=== PATIENT | female | born 1990 | race Caucasian/White ===

== ENCOUNTER → 2024-07-20 10:42 | Outpatient (REF) | payer BC, SELFPAY | LOC: PNTC 10:42 | PROVIDERS: ATTENDING PHYSICIAN Obstetrics & Gynecology | DX: O99.210 Obesity complicating pregnancy, unspecified trimester (principal); O09.811 Supervision of pregnancy resulting from assisted reproductive technology, first trimester; O99.119 Other diseases of the blood and blood-forming organs and certain disorders involving the immune mechanism complicating pregnancy, unspecified trimester; O09.529 Supervision of elderly multigravida, unspecified trimester | CPT/HCPCS: 76801; 76813 ==

== ENCOUNTER → 2024-08-17 14:19 | Outpatient (REF) | payer BC, SELFPAY | LOC: PNTC 14:19 | PROVIDERS: ATTENDING PHYSICIAN Obstetrics & Gynecology | DX: O99.210 Obesity complicating pregnancy, unspecified trimester (principal); O09.819 Supervision of pregnancy resulting from assisted reproductive technology, unspecified trimester; O09.519 Supervision of elderly primigravida, unspecified trimester; O99.891 Other specified diseases and conditions complicating pregnancy | CPT/HCPCS: 76805 ==

== ENCOUNTER → 2024-09-14 14:49 | Outpatient (REF) | payer BC, SELFPAY | LOC: PNTC 14:49 | PROVIDERS: ATTENDING PHYSICIAN Obstetrics & Gynecology | DX: O99.210 Obesity complicating pregnancy, unspecified trimester (principal); O09.529 Supervision of elderly multigravida, unspecified trimester; O09.819 Supervision of pregnancy resulting from assisted reproductive technology, unspecified trimester; O99.119 Other diseases of the blood and blood-forming organs and certain disorders involving the immune mechanism complicating pregnancy, unspecified trimester | CPT/HCPCS: 76811; 76817 ==

== ENCOUNTER → 2024-10-12 13:45 | Outpatient (REF) | payer BC, SELFPAY | LOC: PNTC 13:45 | PROVIDERS: ATTENDING PHYSICIAN Obstetrics & Gynecology | DX: O99.210 Obesity complicating pregnancy, unspecified trimester (principal); O09.819 Supervision of pregnancy resulting from assisted reproductive technology, unspecified trimester; M06.9 Rheumatoid arthritis, unspecified; O44.40 Low lying placenta NOS or without hemorrhage, unspecified trimester | CPT/HCPCS: 76816; 76817 ==

== ENCOUNTER → 2024-11-09 13:56 | Outpatient (REF) | payer BC, SELFPAY | LOC: PNTC 13:56 | PROVIDERS: ATTENDING PHYSICIAN Obstetrics & Gynecology | DX: O99.210 Obesity complicating pregnancy, unspecified trimester (principal); O09.819 Supervision of pregnancy resulting from assisted reproductive technology, unspecified trimester; O99.519 Diseases of the respiratory system complicating pregnancy, unspecified trimester | CPT/HCPCS: 76816 ==

== ENCOUNTER → 2024-12-07 13:53 | Outpatient (REF) | payer BC, SELFPAY | LOC: PNTC 13:53 | PROVIDERS: ATTENDING PHYSICIAN Obstetrics & Gynecology | DX: O99.210 Obesity complicating pregnancy, unspecified trimester (principal); O09.819 Supervision of pregnancy resulting from assisted reproductive technology, unspecified trimester; M05.9 Rheumatoid arthritis with rheumatoid factor, unspecified | CPT/HCPCS: 76816 ==

== ENCOUNTER → 2025-01-04 13:54 | Outpatient (REF) | payer BC, SELFPAY | LOC: PNTC 13:54 | PROVIDERS: ATTENDING PHYSICIAN Obstetrics & Gynecology | DX: O99.210 Obesity complicating pregnancy, unspecified trimester (principal); M06.00 Rheumatoid arthritis without rheumatoid factor, unspecified site; O09.819 Supervision of pregnancy resulting from assisted reproductive technology, unspecified trimester | CPT/HCPCS: 59025; 76816 ==

== ENCOUNTER → 2025-01-11 13:50 | Outpatient (REF) | payer BC, SELFPAY | LOC: PNTC 13:50 | PROVIDERS: ATTENDING PHYSICIAN Obstetrics & Gynecology | DX: O09.529 Supervision of elderly multigravida, unspecified trimester (principal); M05.60 Rheumatoid arthritis of unspecified site with involvement of other organs and systems; Z31.83 Encounter for assisted reproductive fertility procedure cycle; O99.210 Obesity complicating pregnancy, unspecified trimester | CPT/HCPCS: 59025; 76815 ==

== ENCOUNTER → 2025-01-18 09:53 | Outpatient (REF) | payer BC, SELFPAY | LOC: PNTC 09:53 | PROVIDERS: ATTENDING PHYSICIAN Obstetrics & Gynecology | DX: O99.210 Obesity complicating pregnancy, unspecified trimester (principal); M06.9 Rheumatoid arthritis, unspecified; O09.819 Supervision of pregnancy resulting from assisted reproductive technology, unspecified trimester | CPT/HCPCS: 59025; 76816 ==

== ENCOUNTER 2025-01-23 00:26 | Inpatient (IN) | payer BC, SELFPAY ==
[2025-01-23 00:34] VITALS: BMI 36.9
[2025-01-23] MEDS: LR 1000 IV ×2 (00:55→01:59)
[2025-01-23 00:56] VITALS: BP 119/79
[2025-01-23] MEDS: PENICILLIN 110 UNITS IV (01:06)
[2025-01-23 01:12] LABS: Hematocrit 35.9 % (37.0-47.0); Hemoglobin 12.2 g/dL (12.0-16.0); Mean Corp Hgb Conc. 34.0 g/dL (33.0-37.0); Mean Corpuscular Volume 83.3 fL (81.0-99.0); Platelet Count 162 10^3/uL (130-400); Red Cell Dist. Width 15.7 % (11.5-14.5)
[2025-01-23] MEDS: SUBLIMAZE 100 MCG EPIDURAL (01:34)
[2025-01-23] MEDS: FENTANYL/BUPIVACAINE 100 EPIDURAL (01:34)
[2025-01-23 01:45] LABS: Nucleated Red Blood Cells % 0 %
[2025-01-23] MEDS: PENICILLIN 55 UNITS IV (05:08)
[2025-01-23] MEDS: FOLVITE 2 MG PO (08:17)
[2025-01-23] MEDS: COLACE 100 MG PO ×2 (08:17→20:25)
[2025-01-23] MEDS: PRENATAL PLUS 1 TABLET PO (08:17)
[2025-01-23] MEDS: MOTRIN 600 MG PO ×2 (08:18→16:35)
[2025-01-24] MEDS: TYLENOL 650 MG PO (01:13)
[2025-01-24] MEDS: MOTRIN 600 MG PO ×3 (01:14→19:50)
[2025-01-24 04:32] LABS: Hematocrit 32.3 % (37.0-47.0); Hemoglobin 10.8 g/dL (12.0-16.0)
[2025-01-24] MEDS: PRENATAL PLUS 1 TABLET PO (08:57)
[2025-01-24] MEDS: COLACE 100 MG PO ×2 (09:00→19:50)
[2025-01-24] MEDS: FOLVITE 2 MG PO (09:06)
[2025-01-25] MEDS: COLACE 100 MG PO (08:25)
[2025-01-25] MEDS: FOLVITE 2 MG PO (08:25)
[2025-01-25] MEDS: TYLENOL 650 MG PO (08:26)
[2025-01-25] MEDS: PRENATAL PLUS 1 TABLET PO (08:26)
[2025-01-26 17:15] LABS: Syphilis/T. pallidum Ab Reflex Negative (Negative)
== END 2025-01-25 11:07 | disposition home or self-care (01) | DRG 807 ==
LOC: LDRP 00:26
PROVIDERS: Obstetrics & Gynecology; ADMITTING PHYSICIAN Obstetrics & Gynecology; FAMILY PHYSICIAN Family Medicine
PROC: 0UQMXZZ Repair Vulva, External Approach (ICD-10-PCS; 2025-01-23)
PROC: 10E0XZZ Delivery of Products of Conception, External Approach (ICD-10-PCS; 2025-01-23)
PROC: 0HQ9XZZ Repair Perineum Skin, External Approach (ICD-10-PCS; 2025-01-23)
DX: O99.824 Streptococcus B carrier state complicating childbirth (principal); Z37.0 Single live birth; O70.0 First degree perineal laceration during delivery; O71.82 Other specified trauma to perineum and vulva; Z3A.39 39 weeks gestation of pregnancy
CPT/HCPCS: 36415; 85014; 85018; 85025; 86780; 86850; 86900; 86901; 88307

== ENCOUNTER 2025-01-31 18:50 | Day surgery (SDC) | payer BC, SELFPAY ==
[2025-01-31] VITALS (16 sets, daily range): BP systolic 102–132; BP diastolic 68–85
[2025-01-31 15:22] LABS: Hematocrit 37.2 % (37.0-47.0); Hemoglobin 12.3 g/dL (12.0-16.0); Mean Corp Hgb Conc. 33.1 g/dL (33.0-37.0); Mean Corpuscular Volume 85.5 fL (81.0-99.0); Nucleated Red Blood Cells % 0 %; Platelet Count 265 10^3/uL (130-400); Red Cell Dist. Width 15.3 % (11.5-14.5)
[2025-01-31 15:33] LABS: ALT (SGPT) 21 U/L (0-35); AST (SGOT) 23 U/L (14-36); Albumin 3.9 g/dl (3.5-5.0); Alkaline Phosphatase 85 U/L (38-126); Blood Urea Nitrogen 22 mg/dl (7-17); Calcium 9.5 mg/dl (8.4-10.2); Carbon Dioxide 21 mmol/L (22-30); Chloride 111 mmol/L (98-107); Glucose 121 mg/dl (70-99); Potassium 4.1 mmol/L (3.5-5.1); Sodium 139 mmol/L (135-145); Total Protein 7.0 g/dl (6.3-8.2); eGFR > 60.00
--- NOTE | 2025-01-31 15:43 | ED.GENMED ---
History of Present Illness
General
Chief Complaint: Vaginal Bleeding
Time Seen by Provider: 01/31/25 15:41
History of Present Illness
History of Present Illness:
TIME OF INITIAL EVALUATION
- 4 PM
REVIEW OF OLD RECORDS
- I reviewed records, the patient gave 8 days ago
Note:
CHIEF COMPLAINT(S)
bleeding with passage of blood clots 8 days after vaginal delivery.
HISTORY OF PRESENT ILLNESS
The patient is a 34-year-old female who delivered vaginally 8 days ago. She reports passing two significant blood clots today around noon. The patient denies significant pain or cramping, stating, 'I took Tylenol, but no significant cramping right
now.' She has ruled out any symptoms associated with HELLP syndrome or other complications during .
CHRONIC MEDICAL CONDITIONS SIGNIFICANTLY AFFECTING CARE
The patient has a history of rheumatoid arthritis for which she is taking medication.
PHYSICAL EXAM
General: Alert, but appears slightly uncomfortable
Skin: Warm, dry.
Head: Normocephalic, atraumatic.
Neck: Supple, trachea midline.
Eye, Ears, Nose, Mouth, and Throat: Oral mucosa moist.
Cardiovascular: Normal peripheral perfusion, No edema.
Respiratory: Respirations are non-labored.
Gastrointestinal: Abdomen nondistended.
Back: Normal range of motion, Normal alignment.
Musculoskeletal: Normal range of motion, normal strength.
Neurological: Alert and oriented to person, place, time, and situation, No focal neurological deficit observed.
Psychiatric: Cooperative, appropriate mood & affect.
PLAN
1. Initiate IV fluid administration to ensure adequate hydration.
2. Perform an ultrasound to assess for retained products of conception.
3. Notify [facility] on-call for further evaluation and management.
DIFFERENTIAL DIAGNOSIS
The Differential Diagnosis includes, in no particular order and is not limited to:
1. Retained products of conception.
2. hemorrhage.
3. Uterine atony.
4. Endometritis.
5. Coagulation disorder.
6. Subinvolution of the placental site.
7. Cervical laceration.
8. Uterine fibroids.
9. Infection.
10. Placental site trophoblastic tumor.
RADIOLOGY
- Ultrasound imaging obtained�some concern for retained products of conception
EKG
-
LABS
- White count 18.3, hemoglobin 12.3, A+ blood type
UPDATE
- I notified Dr. Neville of the patient's presentation.
SUMMARY OF ENCOUNTER
The patient, a 34-year-old female, presented with bleeding and passage of two significant blood clots 8 days after vaginal delivery. The patient reported no significant pain or cramping. Tylenol was taken for mild pain. The examination
showed the patient in no acute distress and all physical systems examined were unremarkable. IV and oral fluids were initiated to ensure hydration. An ultrasound was planned to assess for retained products of conception.
DISPOSITION
Admit
MANAGEMENT OF THE PATIENTS CARE WAS DISCUSSED WITH
I discussed the patients care with Dr. Morris who plans to admit the patient to the [facility] for further evaluation.
PLAN
Plan includes ensuring hydration, performing an ultrasound to assess for any retained products of conception, and admitting the patient for further evaluation.
MEDICAL DECISION MAKING
-Complexity of Data Reviewed: Chronic conditions affecting care rheumatic arthritis. Differential diagnosis includes retained products of conception, hemorrhage, uterine atony, endometritis, coagulation disorder, subinvolution of the
placental site, cervical laceration, uterine fibroids, infection, and placental site trophoblastic tumor.
-Data:
Category 3
Discussion of management with Dr. Morris regarding further evaluation and admission.
DIAGNOSIS
hemorrhage, unspecified (ICD-10: O72.9)
Phy Exam
Physical Exam
Physical Exam:
See HPI
Course
Orders/Labs/Results
Orders:
Orders
01/31/25 Dinner
Regular
01/31/25 15:04
Type+Screen Urgent
Complete Blood Count/With Diff Urgent
Comprehensive Metabolic Panel Urgent
01/31/25 15:36
US Pelvis [US Pelvis Only (non-obstetric)] Urgent
Comment:
Reason For Exam: looking for retained products
01/31/25 15:43
0.9% Sodium Chloride 1000 ml [Nss] 1,000 ml IV BOLUS
01/31/25 17:07
H&H Urgent
01/31/25 18:01
US Pelvis Only (non-obstetric) Urgent
Comment:
Reason For Exam: ultrasound guidance in operating room for D&E/D&C
Abnormal Lab Results
01/31/25 01/31/25
15:04 17:07
WBC 18.3 H 10^3/uL
(4.8-10.8)
Hgb 11.0 L g/dL
(12.0-16.0)
Hct 33.8 L %
(37.0-47.0)
RDW 15.3 H %
(11.5-14.5)
MPV 13.0 H fL
(7.4-10.4)
Abs Immat Gran (auto) 0.1 H 10^3/uL
(0-0.05)
Absolute Neuts (auto) 13.4 H 10^3/uL
(1.4-6.5)
Absolute Monos (auto) 1.4 H 10^3/uL
(0.1-0.6)
Lymphocytes % 17.4 L %
(20.5-51.1)
Chloride 111 H mmol/L
(98-107)
Carbon Dioxide 21 L mmol/L
(22-30)
BUN 22 H mg/dl
(7-17)
Glucose 121 H mg/dl
(70-99)
01/31/25 17:07
01/31/25 15:04
Vital Signs
Initial and Last Documented VS:
Initial Vital Signs
Temp Pulse Resp BP Pulse Ox
36.9 C 103 16 115/85 99
01/31/25 14:57 01/31/25 14:57 01/31/25 14:57 01/31/25 14:57 01/31/25 14:57
Last Documented Vital Signs
Temp Pulse Resp BP Pulse Ox
36.9 C 81 21 115/83 99
01/31/25 14:57 01/31/25 18:00 01/31/25 18:00 01/31/25 18:00 01/31/25 18:00
*Pulse Oximetry
SaO2: 97
Oxygen Mode of Delivery: Room air
Patient hypoxic: no
*Critical Care Note
Total Time (30-74mins, 75-104mins- exclusive of procedures): Not Applicable
ED Attending Note
-
Portions of this chart may have been created with voice recognition software.� Occasional wrong word or��sound alike� substitutions may have occurred due to the inherent limitations of voice recognition software.
Discharge Plan
Departure
Patient Disposition: OR
Date of Disposition: 01/31/25
Time of Disposition: 17:25
Presentation/result/management discussed w/ accepting MD/DO: dr neville
Patient with high blood pressure during this ER visit?: Yes
Discharge Problem:
hemorrhage
Prescriptions:
No Action
sulfasalazine 500 mg Tablet,Delayed Release (/Ec)
1 g PO BID
Patient Comments:
takes 2 tablets (1000 mg) in AM and PM
Rx Instructions:
takes 2 tablets (1000 mg) in AM and PM
prenat.vits,kerrie,cfw-hgra-gzeir Tablet
1 tab PO DAILY
calcium citrate 500 mg Tablet, Effervescent
500 mg PO DAILY
folic acid 1 mg Tablet
2 mg PO DAILY
Referrals:
Yessenia Eng DO [Family Provider, Family Practice]
Interventions
Interventions:
*Risk Screen - Suicide Last Done: 01/31/25 15:00
*General Assessment Last Done: 01/31/25 15:36
*Neglect/Abuse Screening Last Done: 01/31/25 15:00
*ED COVID-19 Vaccine History Last Done: 01/31/25 15:36
ED-Female Genitourinary Assessment Last Done: 01/31/25 15:36
Discharge Date and Time
Print Language: LAO
[2025-01-31] MEDS: NSS 1000 IV (16:16)
[2025-01-31 17:16] LABS: Hematocrit 33.8 % (37.0-47.0); Hemoglobin 11.0 g/dL (12.0-16.0)
== END 2025-01-31 21:05 | disposition home or self-care (01) ==
LOC: SDS 18:50
PROVIDERS: Emergency Medicine; ATTENDING PHYSICIAN Obstetrics & Gynecology; EMERGENCY PHYSICIAN Emergency Medicine; FAMILY PHYSICIAN Family Medicine
DX: O73.1 Retained portions of placenta and membranes, without hemorrhage (principal)
CPT/HCPCS: 59812; 76856; 76998; 80053; 85014; 85018; 85025; 86850; 86900; 86901; 88305; 96360; 96361; 99285